=== PATIENT | male | born 1965 | race Two or more races ===

== ENCOUNTER 2019-01-21 19:46 | Inpatient (IN) | payer MEDICARE ==
[~2019-01-21] VITALS: Ht 177.8 cm; Wt 86.2 kg
--- NOTE | 2019-01-21 21:50 | NUR ---
Admitted a 54 y/o male from [facility]. On 5150 hold as DTS. Per hold, patient has SI and wants to run into traffic. Patient drinks alcohol on a regular basis states that he has increased depression since of sibling and parents. Patient admitting Dx. Depression. NKA. Upon face to face evaluation, patient appeared alert and oriented x 3, paranoid, suspicious, restless, frustrated, loud, irritable, easily agitated and sarcastic. Explained the paper works and patient sign the consents. Patient stated that I have a very high anxiety and repeatedly stated i have done too much for today with a loud voice then covered himself. Informed of visiting hours and unit policies. Belongings and contraband checked. Q15 min checks initiated. Care plan started. Vital signs checked and recorded. Patient's rights discussed, guide to prescription meds handbook provided. Patient advised of the hold. Notified Dr. Dewey of the admission. Will monitor patient for mood, safety and behavior. Will endorse to the day shift.
[2019-01-21] MEDS ORDERED: MAGNESIUM HYDROXIDE 30 ML UDC PO PRN (22:00)
[2019-01-21] MEDS ORDERED: MAG HYDROX/AL HYDROX/SIMETH 30 ML UDC PO PRN (22:00)
[2019-01-21] MEDS ORDERED: BLOOD SUGAR DIAGNOSTIC 1 EACH STRIP IN ONE (22:00)
[2019-01-21] MEDS ORDERED: LORAZEPAM 0.5 MG TABLET PO PRN (22:00)
[2019-01-21] MEDS ORDERED: ACETAMINOPHEN 325 MG TABLET PO PRN (22:00)
[2019-01-21 23:47] VITALS: BP 127/86
[2019-01-22 07:48] LABS: BILIRUBIN,TOTAL 0.5 mg/dL (0.2-1.0); CALCIUM, SERUM 9.5 mg/dL (8.5-10.1); CREATININE 1.1 mg/dL (0.6-1.3); POTASSIUM 4.7 mmol/L (3.5-5.1); TOTAL PROTEIN, SERUM 8.1 g/dL (6.4-8.2)
[2019-01-22 07:57] LABS: CHOLESTEROL 151 mg/dL (<200); HDL CHOLESTEROL 86 mg/dL (40-60); LDL 52 mg/dL (0-99); TRIGLYCERIDES 73 mg/dL (30-150)
[2019-01-22 08:00] VITALS: BP 118/79
[2019-01-22] MEDS: NICOTINE PATCH (21MG) 21 MG PATCH.TD24 TD SCH (09:00)
[2019-01-22] MEDS ORDERED: LITHIUM CARBONATE (10:10)
[2019-01-22] MEDS ORDERED: RISPERDAL (10:10)
--- NOTE | 2019-01-22 11:41 | NUR ---
INITIAL DISCHARGE PLAN: Patient states that he wants to contact his daughter to see if she would allow for him to live with her. Pt then states that he does not have a plan for discharge and that he does not know what he wants to do. Pt will need placement. SW will help form a safe and proper discharge in collaboration with .
[2019-01-22 16:00] VITALS: BP 134/98
--- NOTE | 2019-01-22 16:00 | NUR ---
GROUP NOTE: pt unable to attend group therapy on this present day due to his lability. SW encouraged pt to attend group discussing "discharge planning" but pt refused stating, "get the fuck out of here I have no idea what I'm going to do."
[2019-01-22 20:00] VITALS: BP 122/78
--- NOTE | 2019-01-22 20:00 | NUR ---
GPS PM OPENING NOTE PATIENT SEEN IN BED RESTING AWAKE. PATIENT HAS NO S/S OF PAIN. PATIENT IN NO PHYSICAL DISTRESS. BREATHING EVEN AND UNLABORED. PATIENT ASKED HOW HE IS FEELING STATES, "I DON'T KNOW I JUST KEEP THINKING ABOUT HOW MUCH I FUCKED UP MY LIFE." PATIENT ENCOURAGED TO EXPRESS HIS FEELINGS. PATIENT DENIES SI AND HI AT THIS TIME. PATIENT DENIES NEEDS AT THIS TIME REVIEWED POC QUESTIONS CONCERNS ADDRESSED. WILL CONT TO MONITOR.
[2019-01-22] MEDS: TEMAZEPAM 7.5 MG CAPSULE PO PRN (21:57)
[2019-01-22] MEDS: MIRTAZAPINE 15 MG TABLET PO SCH (22:00)
[2019-01-23] MEDS: risperiDONE 1 MG TABLET PO SCH ×3 (02:41→18:18)
[2019-01-23 08:00] VITALS: BP 131/60
[2019-01-23] MEDS: NICOTINE PATCH (21MG) 21 MG PATCH.TD24 TD SCH (09:00)
[2019-01-23] MEDS: LITHIUM CARBONATE (300 MG CAP) 300 MG CAPSULE PO SCH ×3 (09:20→17:18)
--- NOTE | 2019-01-23 09:22 | NUR ---
GPS RN NOTES PATIENT REFUSED TO HAVE NICOTINE PATCH. RISKS AND BENEFITS EXPLAINED BUT TO NO AVAIL. PATIENT REFUSED AND SAID HE DOESNT NEED IT. WILL CONTINUE TO MONITOR
--- NOTE | 2019-01-23 14:52 | NUR ---
Group Note 01/23/19 Goal: Patient will attend group held today from 2-2:30pm in the activities room and participate and/or actively listen to peers and be respectful. Intervention: SW facilitated group session with patients regarding Minfulness. SW current relaxation techniques and educated pt. about mindfulness how to practice it and its purpose. SW facilitated mindfulness breathing exercise. Response: Patient was agreeable to participating in group session. Patient was alert and oriented and remained slightly restless with elated mood and cooperative throughout session. Patient made appropriate eye contact throughout group session. Resident was supportive of his peers nodding his head as they shared. Resident arrived at the end of the breathing exercise. However, he shared that he like to take long walks and smoke marijuana recreationally as a method of relaxation. Resident expressed understanding what mindfulness is about and feeling confident in ability to practice it independently. Patient stated, thanks for being here with us. Plan: Patient will be invited to attend next social service agency director group session held.
[2019-01-23 16:00] VITALS: BP 130/82
[2019-01-23 20:30] VITALS: BP 122/71
[2019-01-23] MEDS: MIRTAZAPINE 15 MG TABLET PO SCH (21:15)
[2019-01-23] MEDS: TEMAZEPAM 7.5 MG CAPSULE PO PRN (21:15)
[2019-01-24 08:00] VITALS: BP 115/76
[2019-01-24] MEDS: risperiDONE 1 MG TABLET PO SCH ×2 (08:29→19:51)
[2019-01-24] MEDS: LITHIUM CARBONATE (300 MG CAP) 300 MG CAPSULE PO SCH ×4 (08:29→17:32)
[2019-01-24] MEDS: NICOTINE PATCH (21MG) 21 MG PATCH.TD24 TD SCH (08:30)
--- NOTE | 2019-01-24 15:16 | NUR ---
GROUP NOTE: SW encouraged pt to attend group on this present day to discuss "impaired reality-testing." Pt was irritable and stated he wanted to sleep and be left alone. Pt put his blanket over his head and turned to his side.
[2019-01-24 16:00] VITALS: BP 137/79
--- NOTE | 2019-01-24 17:05 | NUR ---
RN NOTE: PATIENT REFUSED LITHIUM 300MG CAP, 1 CAP PO AT 1700. RISK AND BENEFITS EXPLAINED.
--- NOTE | 2019-01-24 17:35 | NUR ---
RN-NOTES PATIENT AGREED TO TAKE THE LITHIUM 300MG P.O.
[2019-01-24 19:49] VITALS: BP 109/90
[2019-01-24] MEDS: MIRTAZAPINE 15 MG TABLET PO SCH (21:24)
[2019-01-24] MEDS: TEMAZEPAM 7.5 MG CAPSULE PO PRN (22:13)
[2019-01-25] MEDS: risperiDONE 1 MG TABLET PO SCH ×2 (07:09→18:10)
[2019-01-25 08:00] VITALS: BP 121/53
[2019-01-25] MEDS: NICOTINE PATCH (21MG) 21 MG PATCH.TD24 TD SCH (09:00)
[2019-01-25] MEDS: LITHIUM CARBONATE (300 MG CAP) 300 MG CAPSULE PO SCH ×3 (09:10→16:45)
[2019-01-25 16:00] VITALS: BP 154/93
[2019-01-25 19:48] VITALS: BP 129/77
[2019-01-25 20:00] VITALS: BP 129/77
[2019-01-25] MEDS: MIRTAZAPINE 15 MG TABLET PO SCH (21:19)
[2019-01-25] MEDS: TEMAZEPAM 7.5 MG CAPSULE PO PRN (22:10)
[2019-01-26] MEDS: risperiDONE 1 MG TABLET PO SCH ×2 (06:40→18:00)
[2019-01-26 08:00] VITALS: BP 124/67
[2019-01-26] MEDS: NICOTINE PATCH (21MG) 21 MG PATCH.TD24 TD SCH ×2 (08:19→08:23)
[2019-01-26] MEDS: LITHIUM CARBONATE (300 MG CAP) 300 MG CAPSULE PO SCH ×3 (08:19→16:30)
--- NOTE | 2019-01-26 08:37 | NUR ---
RN NOTE PT REFUSED NICOTINE PATCH AT THIS TIME, MED WAS NOT RETURNED TO [facility] TO PACKAGING ALREADY BEING OPENED, MED WAS DISPOSED
--- NOTE | 2019-01-26 14:00 | NUR ---
RN NOTE RADIOLOGY CALLED AND STATED WHEN PT WOULD BE ABLE TO COME DOWN FOR XRAY, INFORMED THAT PT IS READY BUT UNABLE TO BE TAKEN DOWN AT THIS TIME DUE TO SHOWER MAID CURRENTLY BEING ON [facility]. CHARGE NEY INFORMED AND STATED THAT WE MUST WAIT UNTIL SHOWER MAID IS BACK FROM [facility]. RADIOLOGY INFORMED AND WILL CALL THEM BACK ONCE NURSE IS BACK
--- NOTE | 2019-01-26 14:32 | NUR ---
RN NOTE RADIOLOGY WAS CALLED BACK AND NOTIFIED THAT MAJOR SALES ASSOCIATE IS BACK FROM [facility] AND THAT NOW I WOULD BE ABLE TO TAKE THE PATIENT NOW, INFORMED BY RADIOLOGY STAFF THAT THEY ARE CURRENTLY BUSY AND WILL CALL BACK WHEN THEY HAVE A CHANCE TO TAKE THIS PT. WILL AWAIT FOR CALLBACK.
[2019-01-26 15:56] VITALS: BP 132/74
[2019-01-26 19:41] VITALS: BP 141/80
[2019-01-26] MEDS: MIRTAZAPINE 15 MG TABLET PO SCH (21:27)
[2019-01-26] MEDS: TEMAZEPAM 7.5 MG CAPSULE PO PRN (21:52)
[2019-01-27] MEDS: risperiDONE 1 MG TABLET PO SCH ×3 (06:37→21:32)
[2019-01-27 08:00] VITALS: BP 130/81
[2019-01-27] MEDS: LITHIUM CARBONATE (300 MG CAP) 300 MG CAPSULE PO SCH ×3 (08:21→16:22)
[2019-01-27] MEDS: NICOTINE PATCH (21MG) 21 MG PATCH.TD24 TD SCH (08:22)
--- NOTE | 2019-01-27 15:39 | NUR ---
SNF REFERRAL: SW faxed SNF referral to [facility] Address: [address], [place] [address] P:[phone] F:[phone] for review.
[2019-01-27 16:00] VITALS: BP 123/78
[2019-01-27 20:07] VITALS: BP 137/77
[2019-01-27] MEDS: MIRTAZAPINE 15 MG TABLET PO SCH (21:32)
[2019-01-27] MEDS: TEMAZEPAM 7.5 MG CAPSULE PO PRN (22:15)
--- NOTE | 2019-01-28 08:00 | NUR ---
REFUSED 8 AM VITAL SIGNS PER CHRISTIANE KAMINSKI. OJSELIN Hart RN
--- NOTE | 2019-01-28 09:43 | NUR ---
SNF REFERRAL: ZAHAR faxed SNF referral to STEPHON, admission coordinator at [facility] Address: [place] [address] F: [phone] for review.
[2019-01-28] MEDS: LITHIUM CARBONATE (300 MG CAP) 300 MG CAPSULE PO SCH ×4 (10:00→21:26)
[2019-01-28] MEDS: NICOTINE PATCH (21MG) 21 MG PATCH.TD24 TD SCH (10:00)
[2019-01-28] MEDS: risperiDONE 1 MG TABLET PO SCH ×2 (10:00→21:26)
--- NOTE | 2019-01-28 10:28 | NUR ---
SW received a call from STEPHON, admission coordinator at [facility] Address: [place] [address] stating that pt has been accepted to the facility.
--- NOTE | 2019-01-28 15:40 | NUR ---
Group Note: SW encouraged pt to participate in group on 01/28/19 at 2pm regarding discharge planning. Pt appeared to be isolative and presented with a labile mood. Pt stated that he would not like to participate at this time and that he felt unsure about his discharge planning.
[2019-01-28 16:00] VITALS: BP 127/89
--- NOTE | 2019-01-28 19:57 | NUR ---
ms elyssa initial notes seen pt in bed awake and alert , interact appropriately , denies any suicidal ideation. no signs of any discomfort. kept him safe and comfortable and safe at all times.will continue monitoring.
[2019-01-28 20:00] VITALS: BP 141/84
[2019-01-28 20:17] VITALS: BP 141/84
[2019-01-28] MEDS ORDERED: LITHIUM CARBONATE 150 MG CAPSULE PO SCH (21:00)
[2019-01-28] MEDS: MIRTAZAPINE 15 MG TABLET PO SCH (21:26)
[2019-01-28] MEDS: TEMAZEPAM 7.5 MG CAPSULE PO PRN (22:00)
--- NOTE | 2019-01-29 00:03 | NUR ---
ROPE LAYING MACHINE OPERATOR NOTES CHECKED PT SLEEPING COMFORTABLY IN BED WITHOUT ANY DISTRESS NOTED. KEPT HIM COMFORTABLE AT ALL TIMES. WILL CONTINUE MONITORING.
--- NOTE | 2019-01-29 04:00 | NUR ---
CLERICAL WAREHOUSE WORKER NOTES PT SLEEPING COMFORTABLY IN BED WITHOUT ANY SIGNS OF DISTRESS NOTED. WILL CONTINUE MONITORING.
--- NOTE | 2019-01-29 06:51 | NUR ---
ACCOUNTS PAYABLE SPECIALIST CLOSING NOTES PT REMAINS SLEEPING IN HS ROOM WITHOUT ANY DISTRESS NOTED. STABLE TO THE NIGHT AND SLEPT WELL FOR 7 HRS. KEPT HIM WARM AND COMFORTABLE AT ALL TIMES. ENDORSE TO AM NURSE FOR CONTINUITY OF CARE.
[2019-01-29 08:00] VITALS: BP 115/90
[2019-01-29] MEDS: LITHIUM CARBONATE (300 MG CAP) 300 MG CAPSULE PO SCH ×3 (08:47→21:08)
[2019-01-29] MEDS: NICOTINE PATCH (21MG) 21 MG PATCH.TD24 TD SCH (08:47)
[2019-01-29] MEDS: risperiDONE 1 MG TABLET PO SCH ×2 (08:47→20:14)
--- NOTE | 2019-01-29 15:33 | NUR ---
GROUP NOTE: SW encouraged pt to participate in group on this present day discussing "discharge planning." Pt agreed to go to a SNF short term and also agreed to cooperate with treatment and psychiatrist. Pt was cooperative and easily engaged in conversation.
[2019-01-29 16:00] VITALS: BP 139/73
[2019-01-29 20:26] VITALS: BP 158/92
[2019-01-29] MEDS: MIRTAZAPINE 15 MG TABLET PO SCH (21:08)
[2019-01-30 08:00] VITALS: BP 122/71
[2019-01-30] MEDS: risperiDONE 1 MG TABLET PO SCH ×2 (09:24→21:22)
[2019-01-30] MEDS: NICOTINE PATCH (21MG) 21 MG PATCH.TD24 TD SCH (09:24)
[2019-01-30] MEDS: LITHIUM CARBONATE (300 MG CAP) 300 MG CAPSULE PO SCH ×3 (09:24→21:25)
[2019-01-30 16:00] VITALS: BP 124/70
--- NOTE | 2019-01-30 20:02 | NUR ---
RN OPENING NOTES PATIENT WALKING AROUND WITH STABLE GAIT, TALKING TO PEERS. ALERT AND ORIENTED X 3. NO COMPLAINT OF PAIN OR DISCOMFORT. DENIES SUICIDAL IDEATION OF THIS TIME. EDUCATION GIVEN ON THE USE OF CALL LIGHT. BILATERAL UPPER SIDERAILS UP, LOCK AND AT LOWEST POSITION FOR SAFETY. COOPERATIVE. WILL CONTINUE TO MONITOR.
[2019-01-30 20:11] VITALS: BP 133/93
[2019-01-30] MEDS: MIRTAZAPINE 15 MG TABLET PO SCH (21:23)
[2019-01-30] MEDS: TEMAZEPAM 7.5 MG CAPSULE PO PRN (21:52)
[2019-01-31 08:00] VITALS: BP 116/95
[2019-01-31] MEDS: risperiDONE 1 MG TABLET PO SCH ×2 (09:36→21:50)
[2019-01-31] MEDS: LITHIUM CARBONATE (300 MG CAP) 300 MG CAPSULE PO SCH ×3 (09:36→21:50)
[2019-01-31] MEDS: NICOTINE PATCH (21MG) 21 MG PATCH.TD24 TD SCH ×2 (09:36→10:02)
--- NOTE | 2019-01-31 11:04 | NUR ---
DISCHARGE NOTE: Pt discharging on Friday February 01, 2019 at 11:00am via [facility] to [facility] () [address] [place], [address] . Pt has no family to notify. Pts mood is euthymic with congruent affect. Pt denied visual/auditory hallucinations and denied suicidal/homicidal ideation. Pt will address his substance use with Psychiatrist Dr. Anne Address: [address] [place] [address] . Pt will also be under the care of [facility]: Dr Hand Address: [address] [place] [address] . For smoking cessation, patient was referred to the [employer] and [employer] [id number]. Pt will also participate in a telephone meeting with [employer] [phone] on Sunday February 03, 2019 at 8:00am. The multidisciplinary exit care form was done, printed, signed, and given to the patient.
[2019-01-31] MEDS ORDERED: IBUPROFEN 600 MG TABLET PO PRN (12:00)
[2019-01-31 15:59] VITALS: BP 122/67
[2019-01-31 20:08] VITALS: BP 159/79
[2019-01-31] MEDS: MIRTAZAPINE 15 MG TABLET PO SCH (21:50)
[2019-02-01 08:00] VITALS: BP 123/69
[2019-02-01] MEDS: LITHIUM CARBONATE (300 MG CAP) 300 MG CAPSULE PO SCH (08:27)
[2019-02-01] MEDS: risperiDONE 1 MG TABLET PO SCH (08:27)
[2019-02-01] MEDS: NICOTINE PATCH (21MG) 21 MG PATCH.TD24 TD SCH (08:33)
--- NOTE | 2019-02-01 11:55 | NUR ---
RN NOTE- PT D/C BY DR ALONSO / DR BROOKS TO [facility]IA AMBULANCE AT THIS TIME. VALUABLES RETURNED TO PT. VSS, CALM AOX4. PT DENIES SI AND HI AT THE TIME OF D/C. DAUGHTER CHEYENNE MADE AWARE OF D/C WITH MESSAGE LEFT. CHEYENNE SANCHES [phone]
--- NOTE | 2019-02-20 09:32 | NUR ---
15 DAY SUBSTANCE ABUSE FOLLOW UP: Excluded due to D/C to SNF.
== END 2019-02-01 11:55 | DRG 885 ==
LOC: GPS 21:36
PROVIDERS: ADMIT Psychiatry & Neurology Psychiatry; ATTEND Internal Medicine
DX: F31.5 Bipolar disorder, current episode depressed, severe, with psychotic features (principal); F23 Brief psychotic disorder; R45.851 Suicidal ideations; G93.40 Encephalopathy, unspecified; F10.10 Alcohol abuse, uncomplicated; F41.9 Anxiety disorder, unspecified; G89.29 Other chronic pain; M54.5 Low back pain; Z72.0 Tobacco use; M47.816 Spondylosis without myelopathy or radiculopathy, lumbar region; M54.30 Sciatica, unspecified side
CPT/HCPCS: 36415; 72110-TC; 80053-TC; 80061-TC; 87081-TC